=== PATIENT | male | born 1980 | race Caucasian/White ===

== ENCOUNTER 2016-10-28 19:27 | Emergency (ER) | payer OTHER ==
[~2016-10-28] VITALS: Ht 190.5 cm; Wt 122.7 kg
[2016-10-28] MEDS ORDERED: DOLO10TA PO (19:48)
[2016-10-28] MEDS ORDERED: KETOROLAC 60 MG/2 ML VIAL (J1885) IM ONE (20:45)
[2016-10-28 20:57] LABS: BASO % 0.4 % (0.0-1.0); EOS # 0.4 K/mm3 (0.0-0.50); EOS % 3.1 % (0.0-3.0); LARGE UNSTAINED CELL # 0.2 K/mm3 (0.0-0.4); LARGE UNSTAINED CELL % 1.6 % (0.0-4.0); LYMPH % 15.7 % (24.0-44.0); MEAN CORPUSCULAR HEMOGLOBIN 31.1 pg (27.0-33.0); MEAN CORPUSCULAR HGB CONC 34.3 g/dl (32.0-36.5); MEAN CORPUSCULAR VOLUME 90.5 fl (80.0-96.0); MONO # 0.6 K/mm3 (0.0-0.8); MONO % 5.5 % (0.0-5.0); NEUTROPHILS # 8.4 K/mm3 (1.8-7.7); NEUTROPHILS % 73.8 % (36.0-66.0); PLATELET COUNT, AUTOMATED 275 k/mm3 (150-450); RED CELL DISTRIBUTION WIDTH 12.2 % (11.5-14.5); WHITE BLOOD COUNT 11.4 K/mm3 (4.0-10.0)
[2016-10-28 21:17] LABS: ANION GAP 10 MEQ/L (8-16); BLOOD UREA NITROGEN 17 MG/DL (7-18); CALCIUM LEVEL 9.3 MG/DL (8.5-10.1); CARBON DIOXIDE LEVEL 29 MEQ/L (21-32); CHLORIDE LEVEL 100 MEQ/L (98-107); CREATININE FOR GFR 0.92 MG/DL (0.70-1.30); GLOMERULAR FILTRATION RATE > 60.0 (>60); GLUCOSE, FASTING 81 MG/DL (70-105); POTASSIUM SERUM 4.3 MEQ/L (3.5-5.1); SODIUM LEVEL 139 MEQ/L (136-145)
--- NOTE | 2016-10-28 22:00 | REPUSA ---
CLINICAL HISTORY: r/o pathology TECHNIQUE: Realtime sonographic images were obtained in multiple projections. COMMENTS: The right kidney measures 13 cm and the left kidney measures 12.7 cm. Both kidneys are free of hy dronephrosis. There is no evidence of solid or cystic mass. There is no perinephric fluid. There is n o renal calculus. Bladder is underdistended. IMPRESSION: Normal study. Thank you for your kind referral of this patient.
[2016-10-28 22:34] VITALS: BP 133/77
== END 2016-10-28 22:36 | disposition home or self-care (01) ==
LOC: M ED 19:27
DX: R10.9 Unspecified abdominal pain (principal)
CPT/HCPCS: 76775; 80048; 81001; 85025; 96372; 99282; J1885

== ENCOUNTER 2018-05-14 17:46 | Emergency (ER) | payer OTHER ==
[~2018-05-14] VITALS: Ht 190.5 cm; Wt 129.6 kg
[~2018-05-14 17:46] MED LIST: DOLO10TA PO
[2018-05-14] MEDS ORDERED: AMOXICILLIN 500 MG CAP PO ONE (20:45)
[2018-05-14] MEDS ORDERED: LIDOCAINE VISCOUS 2% SOLN 15ML UDC MT ONE (20:45)
[2018-05-14] MEDS ORDERED: KETOROLAC TROMETHAMINE 10 MG TAB PO ONE (20:45)
[2018-05-14] MEDS ORDERED: ACETAMINOPHEN 325 MG TAB PO ONE (20:45)
[2018-05-14] MEDS ORDERED: KETO10TAB PO (20:47)
[2018-05-14] MEDS ORDERED: AMOX875T PO (20:47)
[2018-05-14 21:20] VITALS: BP 148/81
== END 2018-05-14 21:21 | disposition home or self-care (01) ==
LOC: M ED 17:46
DX: K04.7 Periapical abscess without sinus (principal); K27.9 Peptic ulcer, site unspecified, unspecified as acute or chronic, without hemorrhage or perforation; F17.210 Nicotine dependence, cigarettes, uncomplicated

== ENCOUNTER 2018-10-29 20:35 | Inpatient (IN) | payer OTHER ==
[~2018-10-29] VITALS: Ht 190.5 cm; Wt 142.0 kg
[~2018-10-29 20:35] MED LIST changes: +AMOX875T PO; +KETO10TAB PO
[2018-10-29 23:10] VITALS: BP 155/87
[2018-10-29] MEDS ORDERED: PERCOCET 5MG/325MG TAB PO PRN (23:15)
[2018-10-29] MEDS ORDERED: ASPI-161 PO (23:27)
[2018-10-29] MEDS ORDERED: ACET-897 PO (23:27)
[2018-10-29 23:49] LABS: HEMATOCRIT 42.1 % (42.0-52.0); HEMOGLOBIN 13.8 g/dl (13.5-17.5); MEAN CORPUSCULAR HEMOGLOBIN 30.2 pg (27.0-33.0); MEAN CORPUSCULAR HGB CONC 32.8 g/dl (32.0-36.5); MEAN CORPUSCULAR VOLUME 92.1 fl (80.0-96.0); PLATELET COUNT, AUTOMATED 346 10^3/uL (150-450); RED BLOOD COUNT 4.57 10^6/uL (4.30-6.10); WHITE BLOOD COUNT 11.9 10^3/uL (4.0-10.0)
[2018-10-30 00:07] LABS: INR 1.02; PROTHROMBIN TIME 13.1 SECONDS (11.8-14.0)
[2018-10-30 00:09] LABS: BLOOD UREA NITROGEN 16 MG/DL (7-18); CALCIUM LEVEL 9.9 MG/DL (8.5-10.1); CARBON DIOXIDE LEVEL 31 MEQ/L (21-32); CHLORIDE LEVEL 101 MEQ/L (98-107); CREATININE FOR GFR 0.97 MG/DL (0.70-1.30); GLOMERULAR FILTRATION RATE > 60.0 (>60); GLUCOSE, FASTING 163 MG/DL (70-100); POTASSIUM SERUM 4.6 MEQ/L (3.5-5.1); SODIUM LEVEL 138 MEQ/L (136-145)
[2018-10-30] MEDS: PERCOCET 5MG/325MG TAB PO PRN ×2 (01:08→09:13)
[2018-10-30] MEDS: LR 1,000 ML IV SCH ×2 (01:08→09:13)
[2018-10-30 06:00] VITALS: BP 157/95
[2018-10-30 06:41] LABS: HEMATOCRIT 43.8 % (42.0-52.0); HEMOGLOBIN 14.3 g/dl (13.5-17.5); MEAN CORPUSCULAR HEMOGLOBIN 30.7 pg (27.0-33.0); MEAN CORPUSCULAR HGB CONC 32.6 g/dl (32.0-36.5); PLATELET COUNT, AUTOMATED 329 10^3/uL (150-450); RED BLOOD COUNT 4.66 10^6/uL (4.30-6.10); WHITE BLOOD COUNT 9.8 10^3/uL (4.0-10.0)
[2018-10-30 06:52] LABS: INR 1.04; PROTHROMBIN TIME 13.3 SECONDS (11.8-14.0)
[2018-10-30 06:56] LABS: BLOOD UREA NITROGEN 15 MG/DL (7-18); CALCIUM LEVEL 9.5 MG/DL (8.5-10.1); CARBON DIOXIDE LEVEL 31 MEQ/L (21-32); CHLORIDE LEVEL 101 MEQ/L (98-107); GLOMERULAR FILTRATION RATE > 60.0 (>60); GLUCOSE, FASTING 133 MG/DL (70-100); POTASSIUM SERUM 4.4 MEQ/L (3.5-5.1); SODIUM LEVEL 137 MEQ/L (136-145)
--- NOTE | 2018-10-30 10:08 | REP ---
CT RIGHT HIP: CT of the right hip was performed in the axial plane. Sagittal and coronal reconstruction images are performed. Correlation made with plain films from [facility] 10/29/2018. There is no evidence of acute fracture or dislocation. There may be an old chip fracture of the anterior acetabulum. There is moderate joint space narrowing with subchondral sclerosis. There is mild spurring of the lateral acetabulum. There is mild to moderate spurring of the femoral head. Surrounding soft tissue structures grossly unremarkable. IMPRESSION: Moderate degenerative changes without evidence of acute fracture or dislocation. Electronically Signed by Jerome Alcantar MD 10/30/2018 10:18 A
--- NOTE | 2018-10-30 10:44 | HPE ---
DATE OF ADMISSION: 10/30/2018 CHIEF COMPLAINT: Right hip pain. HISTORY OF PRESENT ILLNESS: This is a 38-year-old man. I received a call from [facility] yesterday evening. They were concerned for valgus nondisplaced femoral neck fracture on the right side. According to this man and his father, he slipped on a dock now 17 days ago. He slipped on some green slime and then hit his right hip on the side of the dock. He was able to ambulate afterwards, but he noticed every night when he internally or externally rotated his hip that there would be quite a bit of pain, especially laterally and somewhat in the anterior groin area. He was still able to weightbear but noticed a lot of pain at night. X-rays showed a possible nondisplaced femoral neck suspected fracture. So, I went ahead asked for him to be transferred to our hospital, as [facility] is a critical access hospital. PAST MEDICAL HISTORY: Possible hypertension. MEDICATIONS: None. No known drug allergies. SURGICAL HISTORY: Nil. 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 He smokes 1/2 pack of cigarettes a day. He uses marijuana 1-2 times a week. No alcohol use. No other illicit drug use. VITAL SIGNS: This morning temperature 98.7. Blood pressure of 157/95. Pulse rate 80. 98% on room air. Respiratory rate 18. He is lying supine in bed. On inspection of his right hip, there is no obvious overlying midline or leg length deformity or atrophy. No pain to direct palpation about the hip, the abdomen, or the back. I deferred range of motion testing in case this is a nondisplaced femoral neck fracture. No pain down the femur or knee or ankle. He is able to wiggle his toes, dorsiflex, plantarflex foot. Foot is warm and well-perfused. Strong dorsalis pedis and tibialis posterior pulses. Radiographs were reviewed from [facility], AP and frog-leg lateral of the right hip. There is still what appears to be possible radiolucent line on the medial side of the femoral neck, although this could simply be early osteoarthritis with osteophyte formation. There does appear to be, however, possibly again a disruption in the cortical stress weightbearing lines of the femoral neck. ASSESSMENT AND PLAN: For now, we will keep this man nothing by mouth. We will keep him nonweightbearing. I have ordered blood work. My suspicion is relatively low to moderate given the mechanism of the injury that this would be a valgus-impacted femoral neck fracture in an otherwise healthy individual. However, he is a large individual with a body mass index (BMI) of 39, so this is still a distinct possibility. Before we go ahead with any type of management, it would be lee to confirm or rule out this diagnosis with CT of the right hip. I will go ahead and order this for this morning and review and see him later in the afternoon with the results. HELENA
--- NOTE | 2018-10-30 12:08 | IPN ---
DATE: 10/30/2018 CHIEF COMPLAINT: Right hip pain. HISTORY OF PRESENT ILLNESS: This 38-year-old man slipped and fell on the side of a boat onto his right hip now 17 days ago. I was phone by [facility]. This showed a possible suspicion of a femoral neck fracture. I saw him and assessed him after a direct admission late last evening. I ordered a CT scan to rule in or out a fracture. The CT scan was reviewed by myself as well as radiologist instructional technologist Dr. Alcantar. We both concur that there is no evidence of a femoral neck fracture or other acute abnormality. There is some mild early osteoarthritis, possible old small posterior acetabular fracture. ASSESSMENT/PLAN: This is a 38-year-old man who has no signs of a femoral neck fracture or anything necessitating surgical intervention. He could be weightbearing as tolerated. He can followup in the office if he needs or has continued problems. He already has a followup with myself on 11/05/2018 at 10:15 a.m. I spoke to the patient on the floor as well as the nurses. He will be discharged home today. Follow up as needed.
== END 2018-10-30 12:30 | disposition home or self-care (01) | DRG 351 ==
LOC: M ED INP 22:35 → M MS5PR 22:43
PROVIDERS: ADMIT Orthopaedic Surgery Sports Medicine; ATTEND Orthopaedic Surgery Sports Medicine
DX: M16.11 Unilateral primary osteoarthritis, right hip (principal); F17.210 Nicotine dependence, cigarettes, uncomplicated; M25.551 Pain in right hip; Z91.81 History of falling

== ENCOUNTER 2019-08-06 13:33 | Inpatient (IN) | payer OTHER ==
[~2019-08-06] VITALS: Ht 190.5 cm; Wt 131.4 kg
[~2019-08-06 13:33] MED LIST changes: +ACET-897 PO; +ASPI-161 PO
[2019-08-06] MEDS ORDERED: NS 1,000 ML IV ONE ×3 (13:45→17:45)
[2019-08-06 14:17] LABS: BASO # 0.1 10^3/uL (0.0-0.2); BASO % 0.3 % (0.0-1.0); EOS % 0.1 % (0.0-3.0); HEMATOCRIT 43.9 % (42.0-52.0); HEMOGLOBIN 14.8 g/dl (13.5-17.5); LYMPH # 2.1 10^3/uL (1.5-5.0); LYMPH % 11.9 % (24.0-44.0); MEAN CORPUSCULAR HEMOGLOBIN 30.5 pg (27.0-33.0); MEAN CORPUSCULAR HGB CONC 33.7 g/dl (32.0-36.5); MEAN CORPUSCULAR VOLUME 90.3 fl (80.0-96.0); MONO # 1.4 10^3/uL (0.0-0.8); MONO % 8.2 % (0.0-5.0); NEUTROPHILS # 13.6 10^3/uL (1.5-8.5); NEUTROPHILS % 78.6 % (36.0-66.0); PLATELET COUNT, AUTOMATED 406 10^3/uL (150-450); RED BLOOD COUNT 4.86 10^6/uL (4.30-6.10); WHITE BLOOD COUNT 17.4 10^3/uL (4.0-10.0)
[2019-08-06 14:39] LABS: ACETAMINOPHEN LEVEL < 2.0 UG/ML (10.0-30.0); ALBUMIN 4.7 GM/DL (3.2-5.2); ALT/SGPT 40 U/L (12-78); BILIRUBIN,DIRECT < 0.1 MG/DL (0.0-0.2); BILIRUBIN,TOTAL 0.6 MG/DL (0.2-1.0); CK-MB VALUE MASS 3.8 NG/ML (<3.6); CPK CREATINE PHOSPHOKINASE 479 U/L (39-308); ETHYL ALCOHOL (ETHANOL) < 0.003 % (0.000-0.010); MB/CK RELATIVE INDEX 0.79 (< OR =4); SALICYLATE LEVEL < 1.7 MG/DL (5.0-30.0); THYROID STIMULATING HORMONE 0.191 uIU/ML (0.358-3.740); TOTAL PROTEIN 8.5 GM/DL (6.4-8.2); TROPONIN I < 0.02 NG/ML (< 0.10)
--- NOTE | 2019-08-06 14:54 | REP ---
CHEST SINGLE VIEW: There is no evidence of acute infiltrate. No pleural effusion is seen. The heart is normal in size. The mediastinal silhouette is unremarkable. The visualized osseous structures are intact. IMPRESSION: No acute pulmonary disease. Electronically Signed by Jerome Alcantar MD 08/06/2019 03:09 P
[2019-08-06] MEDS ORDERED: LORazepam 2 MG/ML VIAL (J2060) As Ordered ONE ×2 (15:09→15:45)
[2019-08-06 15:13] LABS: BLOOD UREA NITROGEN 61 MG/DL (7-18); CALCIUM LEVEL 9.6 MG/DL (8.5-10.1); CARBON DIOXIDE LEVEL 21 MEQ/L (21-32); CHLORIDE LEVEL 108 MEQ/L (98-107); GLOMERULAR FILTRATION RATE 51.2 (>60); GLUCOSE, FASTING 182 MG/DL (70-100); POTASSIUM SERUM 4.7 MEQ/L (3.5-5.1); SODIUM LEVEL 141 MEQ/L (136-145)
[2019-08-06] MEDS ORDERED: LORazepam 2 MG/ML VIAL (J2060) IV STA (15:32)
--- NOTE | 2019-08-06 15:37 | REP ---
CT BRAIN WITHOUT IV CONTRAST: CT brain performed without IV contrast. The ventricles are normal in size and position with no midline shift or mass effect. Alcantar/white differentiation is well maintained. There is no acute intracranial hemorrhage or extra-axial fluid collection. Bone window examination is unremarkable. Visualized paranasal sinuses and mastoid air cells are clear. IMPRESSION: Negative noncontrast CT brain. Electronically Signed by Jerome Alcantar MD 08/06/2019 04:15 P
[2019-08-06 17:26] LABS: AMPHETAMINES LEVEL URINE NEGATIVE (NEGATIVE); BARBITURATES URINE NEGATIVE (NEGATIVE); BENZODIAZEPINES URINE NEGATIVE (NEGATIVE); CANNABINOIDS URINE NEGATIVE (NEGATIVE); COCAINE METABOLITE URINE NEGATIVE (NEGATIVE); METHADONE URINE POSITIVE (NEGATIVE); OPIATES URINE NEGATIVE (NEGATIVE); PHENCYCLIDINE URINE NEGATIVE (NEGATIVE)
[2019-08-06] MEDS ORDERED: MAALOX 30 ML SUSP *UDC PO PRN (18:15)
[2019-08-06] MEDS ORDERED: LORazepam 2 MG/ML VIAL (J2060) IV PRN (18:15)
[2019-08-06] MEDS ORDERED: ACETAMINOPHEN TAB 650MG DOSE (2X325MG) PO PRN (18:15)
[2019-08-06] MEDS ORDERED: MOM 30ML SUSPENSION UDC PO PRN (18:15)
--- NOTE | 2019-08-06 18:39 | HPEPDOC ---
[facility] Medical History & Physical Date of Admission August 06, 2019 Date of Service: August 06, 2019 History and Physical CHIEF COMPLAINT: methadone abuse HISTORY OF PRESENT ILLNESS: Patient is a 38-year-old male with past medical history of morbid obesity with a BMI of 36, polysubstance abuse setting with methadone overdose. H&P was primarily obtained by ED team, patient was slightly sedated and uncooperative during interview. Is noted that patient has a history of polysubstance abuse, most recently obtaining methadone on the streets, not currently prescribed. There was possible use of Narcan prior to EMS arrival, none was given en route. In the ED, patient was afebrile, blood pressure 147/87, saturating at 97% on room air. Labs include an elevated white count of 17.4, left shift, neutrophil percentage 78.6, monocyte percentage 8.2, creatinine 1.6, fasting sugar 182, lactic acid 2.8, hepatic function panel within normal limits, ammonia 19, total creatinine kinase 479, troponin 1.02, TSH low at 0.191. Salicylates less than 1.7, acetaminophen level less than 2, alcohol level less than 0.003 methadone dosing positive, imaging includes. Head CT without contrast and chest x-ray revealing no acute disease. In the ED, he was given a liter of normal saline bolus 3, lorazepam 1 mg IV 1. ROS: Unable to be obtained PMH: See above. PSH: See above. Unable to be obtained Family history: Unable to be obtained Social history: +illicits Medications: Reviewed Allergies: NKDA PHYSICAL EXAMINATION: VITAL SIGNS: Please see below. GENERAL: Morbidly obese male, able to respond to simple questions but uncooperative in no distress HEENT: Normocephalic, atraumatic, moist mucous membranes NECK: Supple CARDIOVASCULAR EXAMINATION: S1, S2 RESPIRATORY EXAMINATION: CTAB ABDOMINAL EXAMINATION: Soft, nontender, nondistended, positive bowel sounds EXTREMITIES: no edema SKIN: No rash NEUROLOGICAL EXAMINATION: Awake PSYCHIATRIC EXAMINATION: flat affect Assessment and plan: Patient is a 38-year-old male with past medical history of morbid obesity with a BMI of 36, polysubstance abuse setting with methadone overdose. #Not Rx Methadone use/history of polysubstance abuse: Well not administer opioids, lorazepam 0.5 mg IV every 6 hours when necessary for opioid withdrawal/agitation, IVF #ROBER: Will monitor creatinine levels, follow-up urinalysis, continue IVF #Leukocytosis: Unclear etiology, possible infection versus stress reaction, follow-up urinalysis, follow-up blood cultures, treat accordingly, hold off on antibiotics at this time #Hyperglycemia, will obtain an A1c level #Elevated blood pressure likely secondary to fluids, could have underlying HTN, will monitor, continue IV fluids with gentle hydration rate, elevated blood pressure sustains despite IVF cessation, will consider starting patient on antihypertensive medication #Morbid obesity: Encouraged weight loss as an outpatient DVT ppx: Heparin Full code. Disposition: Well discuss with discharge planning team on disposition Vital Signs Vital Signs Date Time Temp Pulse Resp B/P (MAP) Pulse Ox O2 Delivery O2 Flow Rate FiO2 08/06/19 13:52 97.7 93 25 147/89 (108) 97 Room Air Laboratory Data Labs 24H Laboratory Tests 2 08/06/19 13:52: Bedside Glucose (Misc Panel) 179H 08/06/19 13:56: Immature Granulocyte % (Auto) 0.9, Neutrophils (%) (Auto) 78.6H, Lymphocytes (%) (Auto) 11.9L, Monocytes (%) (Auto) 8.2H, Eosinophils (%) (Auto) 0.1, Basophils (%) (Auto) 0.3, Neutrophils # (Auto) 13.6H, Lymphocytes # (Auto) 2.1, Monocytes # (Auto) 1.4H, Eosinophils # (Auto) 0.0, Basophils # (Auto) 0.1, Nucleated Red Blood Cells % (auto) 0.0, Anion Gap 12, Glomerular Filtration Rate 51.2L, Lactic Acid Level 2.8*H, Calcium Level 9.6, Total Bilirubin 0.6, Direct Bilirubin < 0.1, Aspartate Amino Transf (AST/SGOT) 35, Alanine Aminotransferase (ALT/SGPT) 40, Alkaline Phosphatase 54, Ammonia 19, Total Creatine Kinase 479H, Creatine Kinase MB 3.8H, Creatine Kinase MB Relative Index 0.79, Troponin I < 0.02, Total Protein 8.5H, Albumin 4.7, Albumin/Globulin Ratio 1.2, Thyroid Stimulating Hormone (TSH) 0.191L, Salicylates Level < 1.7L, Acetaminophen Level < 2.0L, Ethyl Alcohol Level < 0.003 08/06/19 13:58: POC Glucose (Misc Panel) 185H, POC Sodium (Misc Panel) 141, POC Potassium (Misc Panel) 4.1, POC Chloride (Misc Panel) 106, POC Total CO2 (Misc Panel) 28.0H, POC Blood Urea Nitrogen (Misc Panel 57H, POC Ionized Calcium (Misc Panel) 4.2L, POC Creatinine (Misc Panel) 1.4H, POC Hematocrit (Misc Panel) 44.0 08/06/19 16:53: Urine Opiates Screen NEGATIVE, Urine Methadone Screen POSITIVEH, Urine Barbiturates Screen NEGATIVE, Urine Phencyclidine Screen NEGATIVE, Urine Amphetamines Screen NEGATIVE, Urine Benzodiazepines Screen NEGATIVE, Urine Cocaine Metabolite Screen NEGATIVE, Urine Cannabinoids Screen NEGATIVE CBC/BMP Laboratory Tests 08/06/19 13:56 Home Medications No Active Prescriptions or Reported Meds Allergies Coded Allergies: No Known Allergies (Unverified , 10/28/16) A-FIB/CHADSVASC A-FIB History Current/History of A-Fib/PAF?: No CASTRO LLOYD MD August 06, 2019 18:21
[2019-08-06] MEDS ORDERED: NALOXONE INJ 0.4MG/1ML VIAL (J2310 PER 1MG) IV PRN (18:45)
[2019-08-06 19:07] LABS: BLOOD UREA NITROGEN 54 MG/DL (7-18); CALCIUM LEVEL 8.5 MG/DL (8.5-10.1); CARBON DIOXIDE LEVEL 26 MEQ/L (21-32); CHLORIDE LEVEL 109 MEQ/L (98-107); CPK CREATINE PHOSPHOKINASE 423 U/L (39-308); CREATININE FOR GFR 1.25 MG/DL (0.70-1.30); GLOMERULAR FILTRATION RATE > 60.0 (>60); GLUCOSE, FASTING 110 MG/DL (70-100); MB/CK RELATIVE INDEX 0.71 (< OR =4); POTASSIUM SERUM 3.9 MEQ/L (3.5-5.1); SODIUM LEVEL 142 MEQ/L (136-145); TROPONIN I < 0.02 NG/ML (< 0.10)
[2019-08-06 19:26] LABS: HEMOGLOBIN A1c 6.8 %
[2019-08-06] MEDS: NS 1,000 ML IV SCH (19:35)
[2019-08-06 19:41] VITALS: BP 136/86
[2019-08-06] MEDS: HEPARIN SOD (PORCINE) 5000UNITS/ML VIAL (J1644 PER 1000UNITS) SC SCH (21:32)
--- NOTE | 2019-08-06 22:20 | ECGEPIP ---
[facility] - ED Test Date: 2019-08-06 Pat Name: KALEY SAMS Department: Room: - Gender: Male Program Manager: vi : 1980 Requested By: CHANCE MARS Order Number: [id number] Reading MD: Zachary Whitlock Measurements Intervals [place] Rate: 93 P: 46 AL: 132 QRS: -15 QRSD: 86 T: 28 QT: 341 QTc: 425 Interpretive Statements SINUS RHYTHM POSSIBLE INCOMPLETE RIGHT BUNDLE BRANCH BLOCK MODERATE VOLTAGE CRITERIA FOR LVH, CONSIDER NORMAL VARIANT MODERATE T-WAVE ABNORMALITY, CONSIDER ANTEROLATERAL ISCHEMIA NO PRIORS FOR COMPARISON Electronically Signed on 08-06-2019 22:20:24 EDT by Zachary Whitlock
[2019-08-07] MEDS: HEPARIN SOD (PORCINE) 5000UNITS/ML VIAL (J1644 PER 1000UNITS) SC SCH ×3 (05:50→20:46)
[2019-08-07 06:00] VITALS: BP 139/81
[2019-08-07 06:44] LABS: HEMATOCRIT 41.9 % (42.0-52.0); HEMOGLOBIN 13.6 g/dl (13.5-17.5); MEAN CORPUSCULAR HEMOGLOBIN 29.8 pg (27.0-33.0); MEAN CORPUSCULAR HGB CONC 32.5 g/dl (32.0-36.5); MEAN CORPUSCULAR VOLUME 91.9 fl (80.0-96.0); PLATELET COUNT, AUTOMATED 352 10^3/uL (150-450); RED BLOOD COUNT 4.56 10^6/uL (4.30-6.10)
[2019-08-07 06:50] LABS: BLOOD UREA NITROGEN 41 MG/DL (7-18); CALCIUM LEVEL 8.7 MG/DL (8.5-10.1); CARBON DIOXIDE LEVEL 26 MEQ/L (21-32); CHLORIDE LEVEL 111 MEQ/L (98-107); CREATININE FOR GFR 1.17 MG/DL (0.70-1.30); GLOMERULAR FILTRATION RATE > 60.0 (>60); GLUCOSE, FASTING 125 MG/DL (70-100); POTASSIUM SERUM 4.1 MEQ/L (3.5-5.1); SODIUM LEVEL 146 MEQ/L (136-145)
[2019-08-07] MEDS: NS 1,000 ML IV SCH (08:19)
[2019-08-07] MEDS ORDERED: INFLUENZA QUADRIVALENT PF VACCINE 0.5ML SYRINGE (90686) IM ONE (09:00)
--- NOTE | 2019-08-07 11:30 | IPNPDOC ---
Date Seen The patient was seen on 08/07/19. Progress Note SUBJECTIVE: sx improved, no o/n events. -Spoke with father and psych. OBJECTIVE PHYSICAL EXAMINATION: VITAL SIGNS: Please see below. GENERAL: Morbidly obese male, able to respond to simple questions more cooperative today, in no distress HEENT: Normocephalic, atraumatic, moist mucous membranes NECK: Supple CARDIOVASCULAR EXAMINATION: S1, S2 RESPIRATORY EXAMINATION: CTAB ABDOMINAL EXAMINATION: Soft, nontender, nondistended, positive bowel sounds EXTREMITIES: no edema SKIN: No rash NEUROLOGICAL EXAMINATION: Awake PSYCHIATRIC EXAMINATION: flat affect Assessment and plan: Patient is a 38-year-old male with past medical history of morbid obesity with a BMI of 36, polysubstance abuse setting with methadone overdose. #Not Rx Methadone use/history of polysubstance abuse: Well not administer opioids, lorazepam 0.5 mg IV every 6 hours when necessary for opioid withdrawa l/agitation, IVF -Spoke with father, Spencer ([phone]), plan to keep overnight, we'll consult psychiatry, possible DC home tomorrow 08/08/19, outpt f/u #ROBER: resolved, will monitor creatinine levels, follow-up urinalysis, continue IVF #Leukocytosis: improved, Unclear etiology, possible infection versus stress reaction, follow-up urinalysis, follow-up blood cultures, treat accordingly, hold off on antibiotics at this time #Hyperglycemia, will obtain an A1c level #Elevated blood pressure likely secondary to fluids, could have underlying HTN, will monitor, continue IV fluids with gentle hydration rate, elevated blood pressure sustains despite IVF cessation, will consider starting patient on antihypertensive medication #Morbid obesity: Encouraged weight loss as an outpatient DVT ppx: Heparin Full code. Disposition: Well discuss with discharge planning team on disposition 40 minutes spent on pt care VS, I&O, 24H, Fishbone Vital Signs/I&O Vital Signs Date Time Temp Pulse Resp B/P (MAP) Pulse Ox O2 Delivery O2 Flow Rate FiO2 08/07/19 06:00 99.3 97 22 139/81 (100) 98 Room Air I&O- Last 24 Hours up to 6 AM 08/07/19 06:00 Intake Total 3301 ml Balance 3301 ml Laboratory Data 24H LABS Laboratory Tests 2 08/06/19 13:52: Bedside Glucose (Misc Panel) 179H 08/06/19 13:56: Immature Granulocyte % (Auto) 0.9, Neutrophils (%) (Auto) 78.6H, Lymphocytes (%) (Auto) 11.9L, Monocytes (%) (Auto) 8.2H, Eosinophils (%) (Auto) 0.1, Basophils (%) (Auto) 0.3, Neutrophils # (Auto) 13.6H, Lymphocytes # (Auto) 2.1, Monocytes # (Auto) 1.4H, Eosinophils # (Auto) 0.0, Basophils # (Auto) 0.1, Nucleated Red Blood Cells % (auto) 0.0, Anion Gap 12, Glomerular Filtration Rate 51.2L, Estimated Mean Plasma Glucose 148H, Hemoglobin A1c 6.8, Lactic Acid Level 2.8*H, Calcium Level 9.6, Total Bilirubin 0.6, Direct Bilirubin < 0.1, Aspartate Amino Transf (AST/SGOT) 35, Alanine Aminotransferase (ALT/SGPT) 40, Alkaline Phosphatase 54, Ammonia 19, Total Creatine Kinase 479H, Creatine Kinase MB 3.8H, Creatine Kinase MB Relative Index 0.79, Troponin I < 0.02, Total Protein 8.5H, Albumin 4.7, Albumin/Globulin Ratio 1.2, Thyroid Stimulating Hormone (TSH) 0.191L, Salicylates Level < 1.7L, Acetaminophen Level < 2.0L, Ethyl Alcohol Level < 0.003 08/06/19 13:58: POC Glucose (Misc Panel) 185H, POC Sodium (Misc Panel) 141, POC Potassium (Misc Panel) 4.1, POC Chloride (Misc Panel) 106, POC Total CO2 (Misc Panel) 28.0H, POC Blood Urea Nitrogen (Misc Panel 57H, POC Ionized Calcium (Misc Panel) 4.2L, POC Creatinine (Misc Panel) 1.4H, POC Hematocrit (Misc Panel) 44.0 08/06/19 16:53: Urine Opiates Screen NEGATIVE, Urine Methadone Screen POSITIVEH, Urine Barbiturates Screen NEGATIVE, Urine Phencyclidine Screen NEGATIVE, Urine Amphetamines Screen NEGATIVE, Urine Benzodiazepines Screen NEGATIVE, Urine Cocaine Metabolite Screen NEGATIVE, Urine Cannabinoids Screen NEGATIVE 08/06/19 18:13: Anion Gap 7L, Glomerular Filtration Rate > 60.0, Calcium Level 8.5, Total Creatine Kinase 423H, Creatine Kinase MB 3.0, Creatine Kinase MB Relative Index 0.71, Troponin I < 0.02 08/06/19 18:38: Lactic Acid Followup at 4 Hours 1.3 08/07/19 05:44: Anion Gap 9, Glomerular Filtration Rate > 60.0, Calcium Level 8.7, Nucleated Red Blood Cells % (auto) 0.0 CBC/BMP Laboratory Tests 08/06/19 13:56 08/06/19 18:13 08/07/19 05:44 Microbiology Microbiology 08/06/19 Blood Culture, Received Pending 08/06/19 Blood Culture, Received Pending CASTRO LLOYD MD August 07, 2019 11:04
[2019-08-07 14:00] VITALS: BP 134/78
[2019-08-07 22:00] VITALS: BP 153/87
[2019-08-08] MEDS: HEPARIN SOD (PORCINE) 5000UNITS/ML VIAL (J1644 PER 1000UNITS) SC SCH ×3 (05:22→22:02)
[2019-08-08 06:00] VITALS: BP 156/88
[2019-08-08 06:07] LABS: HEMATOCRIT 39.7 % (42.0-52.0); HEMOGLOBIN 13.2 g/dl (13.5-17.5); MEAN CORPUSCULAR HEMOGLOBIN 30.1 pg (27.0-33.0); MEAN CORPUSCULAR HGB CONC 33.2 g/dl (32.0-36.5); MEAN CORPUSCULAR VOLUME 90.6 fl (80.0-96.0); PLATELET COUNT, AUTOMATED 326 10^3/uL (150-450); RED BLOOD COUNT 4.38 10^6/uL (4.30-6.10); WHITE BLOOD COUNT 10.4 10^3/uL (4.0-10.0)
[2019-08-08 06:28] LABS: BLOOD UREA NITROGEN 34 MG/DL (7-18); CALCIUM LEVEL 8.7 MG/DL (8.5-10.1); CARBON DIOXIDE LEVEL 24 MEQ/L (21-32); CHLORIDE LEVEL 107 MEQ/L (98-107); CREATININE FOR GFR 1.01 MG/DL (0.70-1.30); GLOMERULAR FILTRATION RATE > 60.0 (>60); GLUCOSE, FASTING 115 MG/DL (70-100); POTASSIUM SERUM 3.9 MEQ/L (3.5-5.1); SODIUM LEVEL 141 MEQ/L (136-145)
--- NOTE | 2019-08-08 10:27 | REP ---
Clinical: Generalized abdominal pain. Technique: Axial noncontrast images from the lung bases to the pubic symphysis with coronal and sagittal re-formations. Comparison: None. Findings: Lung bases are clear. Visualized heart and pericardium normal. Mild fatty infiltration to the liver suggested. Spleen, pancreas, gallbladder, bilateral adrenal glands and kidneys are normal for noncontrast evaluation. The enteric system is without obstruction or acute inflammatory process. Normal terminal ileum and appendix identified in the right lower quadrant. Pelvis demonstrates normal bladder and age appropriate prostate/seminal vesicles. No ascites. No free air. No obvious adenopathy. Abdominal aorta without aneurysm. Musculoskeletal structures are intact without acute abnormality. Impression: 1. Mild fatty infiltration to the liver suggested. 2. No further acute abdominopelvic pathology appreciated. Electronically Signed by Roel Fitch MD 08/08/2019 10:19 A
--- NOTE | 2019-08-08 12:31 | MHCR ---
DATE OF CONSULTATION: 08/07/2019 Consult via telepsychiatry 08/07/2019. HISTORY OF PRESENT ILLNESS: I was asked to evaluate this 38-year-old man with a history of substance abuse who was admitted after methadone overdose. Apparently, the patient is buying the methadone. The patient was felt to be somewhat confused and this is why I was asked to evaluate the patient. The patient was difficult to engage. He definitely appeared to be confused. At first he was saying he did not overdose on methadone. Then he was not sure at all what had happened and why he was in the hospital. Then at some point, he admitted that he does have a problem with abusing methadone. When I asked him how much methadone he has been using, he kept saying "all of it". I asked him multiple times. I could not get him to further explain himself. At one point, he was saying he had a problem with the methadone. Then at another point, he said that he would only use methadone towards the end of the month. The patient would not tell me the date. When I kept asking him to guess on the year, he told me it was 2020. Later on when I asked him again what the year was, he told me again 2020. He admitted that he feels confused. He was able to tell me that the patient denied any mood symptoms. PAST PSYCHIATRIC HISTORY: He said he has never been in a psychiatric hospital before and he has never made a suicidal attempt. He says that his methadone overdose was not a suicidal attempt. FAMILY HISTORY: He says that he mother committed suicide but I am not able to obtain any further information from the patient as to whether mother had any psychiatric problems or not. ABUSE HISTORY: He denies any history of any physical or sexual abuse. SUBSTANCE ABUSE: Apparently, he has a history of abusing heroin. According to the chart his toxicology was positive for methadone. SOCIAL HISTORY: Apparently, the patient lives with his father. He says that he does not work. MENTAL STATUS EXAMINATION: This patient, as I said was difficult to engage. He responded with simple one-word answers. The patient did not exert any formal thought disorder. His eye contact was poor. Psychomotor activity was decreased. He described his mood as okay. His affect was flat. He did not appear to be psychotic. He was not suicidal or homicidal. Concentration was fair. He had difficulty with his memory. He could repeat three words after me but then after a few minutes, he could not remember any of them but remembered two of them only when I gave him some clues. However, he was able to spell world for me forward and backwards. It was difficult to get him to engage on any further mental status questions at that point. Insight and judgment appears to be fair. DIAGNOSES: Substance induced neurocognitive disorder and opioid use disorder. TREATMENT PLAN: At this point, apparently, the patient has already had a CT scan done of his head and it was found to be negative. The patient will be re-evaluated again over the weekend to see if he clears up and the overall plan will be to refer the patient to outpatient addictions treatment.
--- NOTE | 2019-08-08 12:55 | IPNPDOC ---
Date Seen The patient was seen on 08/08/19. Progress Note SUBJECTIVE: Pt c/o abdominal pain. Patient is still slow to respond, reports thirst, Discussed with father, psych, and neuro. OBJECTIVE PHYSICAL EXAMINATION: VITAL SIGNS: Please see below. GENERAL: Morbidly obese male, able to respond to simple questions more cooperative today, in no distress HEENT: Normocephalic, atraumatic, moist mucous membranes NECK: Supple CARDIOVASCULAR EXAMINATION: S1, S2 RESPIRATORY EXAMINATION: CTAB ABDOMINAL EXAMINATION: Soft, nontender, nondistended, positive bowel sounds EXTREMITIES: no edema SKIN: No rash NEUROLOGICAL EXAMINATION: Awake, has trouble with coordination PSYCHIATRIC EXAMINATION: flat affect Assessment and plan: Patient is a 38-year-old male with past medical history of morbid obesity with a BMI of 36, polysubstance abuse setting with methadone overdose. #Not Rx Methadone use/history of polysubstance abuse: Well not administer opioids, lorazepam 0.5 mg IV every 6 hours when necessary for opioid withdrawal/agitation, IVF -Spoke with father, Spencer ([phone]) and psychiatry -PT, OT, -neuro consult, discussed with neuro: MRI of the brain with and without contrast, obtained B1 and B12 level -earilest plan for DC on 08/10/2019, father will vegetable picker. Patient to bring to [facility]: [address] [place] [id number], spoke with Nya Vila, Saturday 8:00a apt (vegetable picker patient at 7 AM) #elevated BP: Will start patient on lisinopril 10 mg daily, patient's A1c is 6.8 #ROBER: resolved, will monitor creatinine levels, follow-up urinalysis, continue IVF #Leukocytosis: improving, Unclear etiology, possible infection versus stress reaction, follow-up urinalysis, follow-up blood cultures, treat accordingly, hold off on antibiotics at this time #Hyperglycemia, A1c 6.8, no additional ISS at this time due to patient's obtunded state #Elevated blood pressure likely secondary to fluids, could have underlying HTN, will monitor, continue IV fluids with gentle hydration rate, elevated blood pressure sustains despite IVF cessation, will consider starting patient on antihypertensive medication #Morbid obesity: Encouraged weight loss as an outpatient DVT ppx: Heparin Full code. Disposition: pending 35 minutes spent on pt care VS, I&O, 24H, Fishbone Vital Signs/I&O Vital Signs Date Time Temp Pulse Resp B/P (MAP) Pulse Ox O2 Delivery O2 Flow Rate FiO2 08/08/19 06:00 98.6 72 18 156/88 (110) 97 Room Air I&O- Last 24 Hours up to 6 AM 08/08/19 06:00 Intake Total 2100 ml Output Total 750 ml Balance 1350 ml Laboratory Data 24H LABS Laboratory Tests 2 08/08/19 05:16: Nucleated Red Blood Cells % (auto) 0.0, Anion Gap 10, Glomerular Filtration Rate > 60.0, Calcium Level 8.7 08/08/19 09:46: CBC/BMP Laboratory Tests 08/08/19 05:16 Microbiology Microbiology 08/06/19 Blood Culture - Preliminary, Resulted No growth after 24 hours . All specim... 08/06/19 Blood Culture - Preliminary, Resulted No growth after 24 hours . All specim... CASTRO LLOYD MD August 08, 2019 11:40
[2019-08-08] MEDS: lisinopriL 10 MG TAB PO SCH (13:22)
[2019-08-08 14:00] VITALS: BP 143/90
[2019-08-08 22:00] VITALS: BP 142/91
[2019-08-09] MEDS: HEPARIN SOD (PORCINE) 5000UNITS/ML VIAL (J1644 PER 1000UNITS) SC SCH ×3 (05:22→21:05)
[2019-08-09 06:00] VITALS: BP 142/90
[2019-08-09 06:06] LABS: HEMATOCRIT 42.8 % (42.0-52.0); HEMOGLOBIN 13.9 g/dl (13.5-17.5); MEAN CORPUSCULAR HGB CONC 32.5 g/dl (32.0-36.5); MEAN CORPUSCULAR VOLUME 89.4 fl (80.0-96.0); PLATELET COUNT, AUTOMATED 346 10^3/uL (150-450); RED BLOOD COUNT 4.79 10^6/uL (4.30-6.10); WHITE BLOOD COUNT 12.5 10^3/uL (4.0-10.0)
[2019-08-09 06:42] LABS: BLOOD UREA NITROGEN 22 MG/DL (7-18); CALCIUM LEVEL 9.1 MG/DL (8.5-10.1); CARBON DIOXIDE LEVEL 26 MEQ/L (21-32); CHLORIDE LEVEL 104 MEQ/L (98-107); CREATININE FOR GFR 0.96 MG/DL (0.70-1.30); GLOMERULAR FILTRATION RATE > 60.0 (>60); GLUCOSE, FASTING 111 MG/DL (70-100); POTASSIUM SERUM 3.9 MEQ/L (3.5-5.1); SODIUM LEVEL 138 MEQ/L (136-145)
[2019-08-09] MEDS ORDERED: MIRALAX *UNIT DOSE* 17GM PACKET PO SCH (09:00)
[2019-08-09] MEDS: lisinopriL 10 MG TAB PO SCH (10:09)
[2019-08-09] MEDS ORDERED: LISI10TA4 PO (11:32)
--- NOTE | 2019-08-09 11:40 | DS.PDOC ---
Discharge Summary General Date of Admission August 08, 2019 at 12:55 Date of Discharge 08/10/19 Discharge Summary PROCEDURES PERFORMED DURING STAY: None ADMITTING DIAGNOSES: 1. Methadone abuse DISCHARGE DIAGNOSES: 1.Methadone abuse COMPLICATIONS/CHIEF COMPLAINT: Mild Methadone Abuse. HISTORY OF PRESENT ILLNESS/HOSPITAL COURSE: Patient is a 38-year-old male with past medical history of morbid obesity with a BMI of 36, polysubstance abuse setting with methadone overdose. To note, pt is not Rx Methadone use and d/t history of polysubstance abuse, no opioids were administered during hospitalization. Pt was hydrated and symptoms improved. Due to sluggish activity, PT evaluated patient and has cleared him to be discharged on 08/10/2019. Psychiatry was also consulted for possible SI. Neurology subsequently was consulted for evaluation of confusion, pending B1 and B12 levels. Also, pending MRI of the brain with and without contrast. I spoke with father, Spencer ([phone]) in regards to dc planning. Due to elevated sys BP 140-160s, patient was empirically started on lisinopril, A1c was 6.8. He had ROBER has position was subsequently resolved, he also had leukocytosis, which improved without additional antibiotic treatment, he denies any fevers. . He does report constipation, records reveal old having bowel movements, we will administer bowel regimen, likely secondary to opioid use. Patient in the a.m. did report some dizziness, and some sweating. He has been without opioids for 4 days, VSS. Plan for DC on 08/10/2019, father will garbage pick up man patient and transport him to [facility]: [address] [place] [address], spoke with Nya Vila, Saturday 8:00a apt (garbage pick up man patient at 7 AM). . Recommend patient to follow-up with PCP 1 week after discharge, encourage weight loss, or morbid obesity. PHYSICAL EXAMINATION: VITAL SIGNS: Please see below. GENERAL: Morbidly obese male, able to respond to simple questions more cooperative today, in no distress HEENT: Normocephalic, atraumatic, moist mucous membranes NECK: Supple CARDIOVASCULAR EXAMINATION: S1, S2 RESPIRATORY EXAMINATION: CTAB ABDOMINAL EXAMINATION: Soft, nontender, nondistended, positive bowel sounds EXTREMITIES: no edema SKIN: No rash NEUROLOGICAL EXAMINATION: Awake, has trouble with coordination PSYCHIATRIC EXAMINATION: flat affect TIME SPENT ON DISCHARGE: 32 minutes Vital Signs/I&Os Vital Signs Date Time Temp Pulse Resp B/P (MAP) Pulse Ox O2 Delivery O2 Flow Rate FiO2 08/09/19 10:09 147/103 08/09/19 06:00 98.0 77 18 99 Room Air I&O- Last 24 Hours up to 6 AM 08/09/19 06:00 Intake Total 3560 ml Output Total 800 ml Balance 2760 ml Laboratory Data Labs 24H Laboratory Tests 2 08/09/19 05:32: Nucleated Red Blood Cells % (auto) 0.0, Anion Gap 8, Glomerular Filtration Rate > 60.0, Calcium Level 9.1 CBC/BMP Laboratory Tests 08/09/19 05:32 Microbiology Microbiology 08/06/19 Blood Culture - Preliminary, Resulted No Growth after 48 hours. All Specime... 08/06/19 Blood Culture - Preliminary, Resulted No Growth after 48 hours. All Specime... Discharge Medications Scheduled Lisinopril (Lisinopril) 10 Mg Tablet, 10 MG PO DAILY Allergies Coded Allergies: No Known Allergies (Unverified , 10/28/16) CASTRO LLOYD MD August 09, 2019 11:33
--- NOTE | 2019-08-09 11:53 | IPNPDOC ---
Date Seen The patient was seen on 08/09/19. Progress Note SUBJECTIVE: Pt c/o abdominal pain CT abd and pelvis wnl, +BM, add med for BM. Pendign MRI brain and B1/B12 levels. D/w PT and Father on dc planning. OBJECTIVE PHYSICAL EXAMINATION: VITAL SIGNS: Please see below. GENERAL: Morbidly obese male, able to respond to simple questions more cooperative today, in no distress HEENT: Normocephalic, atraumatic, moist mucous membranes NECK: Supple CARDIOVASCULAR EXAMINATION: S1, S2 RESPIRATORY EXAMINATION: CTAB ABDOMINAL EXAMINATION: Soft, nontender, nondistended, positive bowel sounds EXTREMITIES: no edema SKIN: No rash NEUROLOGICAL EXAMINATION: Awake, has trouble with coordination PSYCHIATRIC EXAMINATION: flat affect Assessment and plan: Patient is a 38-year-old male with past medical history of morbid obesity with a BMI of 36, polysubstance abuse setting with methadone overdose. #Not Rx Methadone use/history of polysubstance abuse: Well not administer opioids, lorazepam 0.5 mg IV every 6 hours when necessary for opioid withdrawal/agitation, IVF -Spoke with fatherSpencer ([phone]) and psychiatry -PT, OT, -neuro consult, discussed with neuro: MRI of the brain with and without contrast, obtained B1 and B12 level -earilest plan for DC on 08/10/2019, father will olive picker. Patient to bring to [facility]: [address] [place] [address], spoke with Nya Vila, Saturday 8:00a apt (olive picker patient at 7 AM) -add miralax #elevated BP: Will start patient on lisinopril 10 mg daily, patient's A1c is 6.8 #ROBER: resolved, will monitor creatinine levels, follow-up urinalysis, continue IVF #Leukocytosis: improving, Unclear etiology, possible infection versus stress reaction, follow-up urinalysis, follow-up blood cultures, treat accordingly, hold off on antibiotics at this time -no fever, clinical improvement, will monitor #Hyperglycemia, A1c 6.8, no additional ISS at this time due to patient's obtunded state #Elevated blood pressure likely secondary to fluids, could have underlying HTN, will monitor, continue IV fluids with gentle hydration rate, elevated blood pressure sustains despite IVF cessation, will consider starting patient on antihypertensive medication #Morbid obesity: Encouraged weight loss as an outpatient DVT ppx: Heparin Full code. Disposition: pending 32 minutes spent on pt care VS, I&O, 24H, Fishbone Vital Signs/I&O Vital Signs Date Time Temp Pulse Resp B/P (MAP) Pulse Ox O2 Delivery O2 Flow Rate FiO2 08/09/19 10:09 147/103 08/09/19 06:00 98.0 77 18 99 Room Air I&O- Last 24 Hours up to 6 AM 08/09/19 06:00 Intake Total 3560 ml Output Total 800 ml Balance 2760 ml Laboratory Data 24H LABS Laboratory Tests 2 08/09/19 05:32: Nucleated Red Blood Cells % (auto) 0.0, Anion Gap 8, Glomerular Filtration Rate > 60.0, Calcium Level 9.1 CBC/BMP Laboratory Tests 08/09/19 05:32 Microbiology Microbiology 08/06/19 Blood Culture - Preliminary, Resulted No Growth after 48 hours. All Specime... 08/06/19 Blood Culture - Preliminary, Resulted No Growth after 48 hours. All Specime... CASTRO LLOYD MD August 09, 2019 11:52
[2019-08-09 12:03] LABS: CHOLESTEROL LEVEL 152 MG/DL (<200); CHOLESTEROL RISK RATIO 5.846 (<5); HDL CHOLESTEROL 26 MG/DL (>40); LDL CHOLESTEROL 76 MG/DL (<100); NON-HDL-C 126 MG/DL; TRIGLYCERIDES LEVEL 248 MG/DL (<150)
[2019-08-09 14:00] VITALS: BP 131/76
[2019-08-09 22:00] VITALS: BP 137/81
[2019-08-10 05:08] LABS: HEMATOCRIT 45.1 % (42.0-52.0); MEAN CORPUSCULAR HEMOGLOBIN 29.7 pg (27.0-33.0); MEAN CORPUSCULAR HGB CONC 33.3 g/dl (32.0-36.5); MEAN CORPUSCULAR VOLUME 89.3 fl (80.0-96.0); PLATELET COUNT, AUTOMATED 348 10^3/uL (150-450); RED BLOOD COUNT 5.05 10^6/uL (4.30-6.10); WHITE BLOOD COUNT 12.2 10^3/uL (4.0-10.0)
[2019-08-10 05:31] LABS: BLOOD UREA NITROGEN 21 MG/DL (7-18); CALCIUM LEVEL 9.3 MG/DL (8.5-10.1); CARBON DIOXIDE LEVEL 27 MEQ/L (21-32); CHLORIDE LEVEL 102 MEQ/L (98-107); GLOMERULAR FILTRATION RATE > 60.0 (>60); GLUCOSE, FASTING 124 MG/DL (70-100); POTASSIUM SERUM 4.2 MEQ/L (3.5-5.1); SODIUM LEVEL 136 MEQ/L (136-145)
[2019-08-10] MEDS: HEPARIN SOD (PORCINE) 5000UNITS/ML VIAL (J1644 PER 1000UNITS) SC SCH (05:34)
[2019-08-10 06:00] VITALS: BP 140/68
[2019-08-10 07:15] VITALS: BP 140/68
[2019-08-10] MEDS: lisinopriL 10 MG TAB PO SCH (07:15)
== END 2019-08-10 07:19 | disposition home or self-care (01) | DRG 812 ==
LOC: EDBD 13:33 → M ED 13:33 → M ED INP 13:34 → ENRESERV 19:18 → M MSPAV 19:41 → OBSVTOIN 08-08 12:55
PROVIDERS: ADMIT Family Medicine; ATTEND Family Medicine
DX: T40.3X1A Poisoning by methadone, accidental (unintentional), initial encounter (principal); N17.9 Acute kidney failure, unspecified; E66.01 Morbid (severe) obesity due to excess calories; Z68.36 Body mass index [BMI] 36.0-36.9, adult; D72.829 Elevated white blood cell count, unspecified; E73.9 Lactose intolerance, unspecified; Z81.8 Family history of other mental and behavioral disorders; F11.10 Opioid abuse, uncomplicated; K59.09 Other constipation

== ENCOUNTER → 2019-08-11 | Outpatient (CLI) | payer MEDICAID ==
[~2019-08-11] MED LIST changes: +LISI10TA4 PO
== END ==
LOC: M OUTALCOH 09:01
PROVIDERS: ATTEND Psychiatry & Neurology Addiction Medicine
DX: F11.20 Opioid dependence, uncomplicated (principal)

== ENCOUNTER → 2019-09-01 | Outpatient (CLI) | payer OTHER ==
[2019-09-01 10:10] LABS: HEMATOCRIT 46.8 % (42.0-52.0); HEMOGLOBIN 15.2 g/dl (13.5-17.5); MEAN CORPUSCULAR HEMOGLOBIN 29.4 pg (27.0-33.0); MEAN CORPUSCULAR HGB CONC 32.5 g/dl (32.0-36.5); MEAN CORPUSCULAR VOLUME 90.5 fl (80.0-96.0); PLATELET COUNT, AUTOMATED 285 10^3/uL (150-450); RED BLOOD COUNT 5.17 10^6/uL (4.30-6.10); WHITE BLOOD COUNT 7.6 10^3/uL (4.0-10.0)
[2019-09-01 10:38] LABS: ALBUMIN 4.3 GM/DL (3.2-5.2); ALT/SGPT 85 U/L (12-78); BILIRUBIN,TOTAL 0.3 MG/DL (0.2-1.0); BLOOD UREA NITROGEN 22 MG/DL (7-18); CALCIUM LEVEL 9.9 MG/DL (8.5-10.1); CARBON DIOXIDE LEVEL 29 MEQ/L (21-32); CHLORIDE LEVEL 98 MEQ/L (98-107); CREATININE FOR GFR 0.98 MG/DL (0.70-1.30); GLOMERULAR FILTRATION RATE > 60.0 (>60); GLUCOSE, FASTING 211 MG/DL (70-100); POTASSIUM SERUM 4.8 MEQ/L (3.5-5.1); SODIUM LEVEL 134 MEQ/L (136-145); TOTAL PROTEIN 7.9 GM/DL (6.4-8.2)
[2019-09-01 13:43] LABS: CHLAMYDIA DNA AMPLIFICATION NEGATIVE (NEGATIVE); GC DNA AMPLIFICATION NEGATIVE (NEGATIVE)
--- NOTE | 2019-09-01 21:52 | ECGEPIP ---
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
[2019-09-02 09:50] LABS: HEPATITIS B SURFACE ANTIGEN NEGATIVE (NEGATIVE)
[2019-09-02 10:18] LABS: HEPATITIS C VIRUS ABY INDEX 0.2 INDEX (<0.8)
[2019-09-02 10:19] LABS: HIV 1&2 SCREEN CENTAUR NEGATIVE (NEGATIVE)
== END ==
LOC: M LAB 08:55
PROVIDERS: ATTEND Family Medicine
DX: F11.10 Opioid abuse, uncomplicated (principal)

== ENCOUNTER 2020-08-10 13:20 | Emergency (ER) | payer OTHER ==
[~2020-08-10] VITALS: Ht 190.5 cm; Wt 129.6 kg
[~2020-08-10 13:20] MED LIST changes: +LISI10TA22 PO; -LISI10TA4 PO
[2020-08-10 13:22] VITALS: BP 161/92
[2020-08-10 16:57] LABS: BASO # 0.1 10^3/uL (0.0-0.2); BASO % 0.9 % (0.0-1.0); EOS # 0.5 10^3/uL (0.0-0.5); EOS % 5.6 % (0.0-3.0); HEMATOCRIT 42.5 % (42.0-52.0); HEMOGLOBIN 13.6 g/dl (13.5-17.5); LYMPH # 1.6 10^3/uL (1.5-5.0); LYMPH % 19.6 % (24.0-44.0); MEAN CORPUSCULAR HEMOGLOBIN 29.8 pg (27.0-33.0); MONO # 0.7 10^3/uL (0.0-0.8); MONO % 8.6 % (2.0-8.0); NEUTROPHILS # 5.2 10^3/uL (1.5-8.5); NEUTROPHILS % 64.8 % (36.0-66.0); PLATELET COUNT, AUTOMATED 294 10^3/uL (150-450); RED BLOOD COUNT 4.57 10^6/uL (4.30-6.10)
[2020-08-10 17:17] LABS: BLOOD UREA NITROGEN 20 MG/DL (7-18); C REACTIVE PROTEIN QUANTITATIV 0.85 MG/DL (0.00-0.30); CARBON DIOXIDE LEVEL 31 MEQ/L (21-32); CHLORIDE LEVEL 106 MEQ/L (98-107); GLOMERULAR FILTRATION RATE > 60.0 (>60); GLUCOSE, FASTING 88 MG/DL (70-100); SODIUM LEVEL 139 MEQ/L (136-145)
[2020-08-10 17:30] LABS: ERYTHROCYTE SEDIMENTATION RATE 15 mm/hr (0-15)
== END 2020-08-10 17:24 | disposition left against medical advice (07) ==
LOC: M ED 13:20
DX: R22.42 Localized swelling, mass and lump, left lower limb (principal); I10 Essential (primary) hypertension; F17.200 Nicotine dependence, unspecified, uncomplicated

== ENCOUNTER 2020-08-16 17:10 | Emergency (ER) | payer OTHER ==
[~2020-08-16] VITALS: Ht 190.5 cm; Wt 131.8 kg
[2020-08-16 20:26] LABS: BASO # 0.1 10^3/uL (0.0-0.2); BASO % 0.7 % (0.0-1.0); EOS # 0.3 10^3/uL (0.0-0.5); EOS % 3.6 % (0.0-3.0); HEMATOCRIT 40.7 % (42.0-52.0); HEMOGLOBIN 13.1 g/dl (13.5-17.5); LYMPH # 1.9 10^3/uL (1.5-5.0); LYMPH % 21.2 % (24.0-44.0); MEAN CORPUSCULAR HEMOGLOBIN 29.8 pg (27.0-33.0); MEAN CORPUSCULAR HGB CONC 32.2 g/dl (32.0-36.5); MEAN CORPUSCULAR VOLUME 92.5 fl (80.0-96.0); MONO # 0.8 10^3/uL (0.0-0.8); MONO % 8.4 % (2.0-8.0); NEUTROPHILS % 65.8 % (36.0-66.0); PLATELET COUNT, AUTOMATED 308 10^3/uL (150-450); WHITE BLOOD COUNT 9.2 10^3/uL (4.0-10.0)
[2020-08-16 20:46] LABS: ERYTHROCYTE SEDIMENTATION RATE 22 mm/hr (0-15)
[2020-08-16 21:04] LABS: ALBUMIN 4.1 GM/DL (3.2-5.2); ALT/SGPT 49 U/L (12-78); BILIRUBIN,DIRECT < 0.1 MG/DL (0.0-0.2); BILIRUBIN,TOTAL 0.4 MG/DL (0.2-1.0); BLOOD UREA NITROGEN 16 MG/DL (7-18); C REACTIVE PROTEIN QUANTITATIV 0.87 MG/DL (0.00-0.30); CALCIUM LEVEL 9.6 MG/DL (8.5-10.1); CARBON DIOXIDE LEVEL 31 MEQ/L (21-32); CHLORIDE LEVEL 105 MEQ/L (98-107); CREATININE FOR GFR 0.85 MG/DL (0.70-1.30); GLOMERULAR FILTRATION RATE > 60.0 (>60); GLUCOSE, FASTING 90 MG/DL (70-100); POTASSIUM SERUM 3.9 MEQ/L (3.5-5.1); SODIUM LEVEL 139 MEQ/L (136-145); TOTAL PROTEIN 7.7 GM/DL (6.4-8.2)
[2020-08-16 21:15] LABS: AMPHETAMINES LEVEL URINE POSITIVE (NEGATIVE); BARBITURATES URINE NEGATIVE (NEGATIVE); BENZODIAZEPINES URINE NEGATIVE (NEGATIVE); CANNABINOIDS URINE NEGATIVE (NEGATIVE); COCAINE METABOLITE URINE NEGATIVE (NEGATIVE); METHADONE URINE POSITIVE (NEGATIVE); OPIATES URINE NEGATIVE (NEGATIVE); PHENCYCLIDINE URINE NEGATIVE (NEGATIVE)
--- NOTE | 2020-08-16 22:26 | REPVR ---
PROCEDURE INFORMATION: Exam: US Duplex Left Lower Extremity Veins, Limited Exam date and time: 08/16/2020 9:46 PM Age: 39 years old Clinical indication: Pain; Leg, lower and foot; Left; Additional info: Swelling and calf pain, RO dvt TECHNIQUE: Imaging protocol: Real-time Duplex ultrasound of the Left Lower Extremity with 2-D alanis scale, color Doppler flow and spectral waveform analysis with image documentation. Limited exam focused on the left lower extremity veins. COMPARISON: No relevant prior studies available. FINDINGS: Left deep veins: Unremarkable. The common femoral, femoral, proximal profunda femoral and popliteal veins are patent without thrombus. Normal Doppler waveforms. Normal compressibility and/or augmentation response. Left superficial veins: Unremarkable. Saphenofemoral junction is patent without thrombus. Soft tissues: Unremarkable. IMPRESSION: No evidence of deep vein thrombosis. Electronically signed by: Davie Vyas On 08/16/2020 22:26:30 PM
[2020-08-16 22:32] VITALS: BP 142/96
== END 2020-08-16 22:36 | disposition home or self-care (01) ==
LOC: M ED 17:10
DX: R22.42 Localized swelling, mass and lump, left lower limb (principal); R23.8 Other skin changes; I10 Essential (primary) hypertension; F10.10 Alcohol abuse, uncomplicated; F15.10 Other stimulant abuse, uncomplicated

== ENCOUNTER → 2020-08-30 | Outpatient (CLI) | payer OTHER ==
[2020-08-30 13:41] LABS: APPEARANCE, URINE CLEAR (CLEAR); BACTERIA, URINE AUTO NEGATIVE (NEGATIVE); BILIRUBIN, URINE AUTO NEGATIVE (NEGATIVE); BLOOD, URINE BLOOD NEGATIVE (NEGATIVE); COLOR, URINE YELLOW (YELLOW); GLUCOSE, URINE (UA) AUTO NEGATIVE (NEGATIVE); KETONE, URINE AUTO NEGATIVE (NEGATIVE); LEUKOCYTE ESTERASE, URINE AUTO NEGATIVE (NEGATIVE); MUCUS, URINE SMALL (NEGATIVE); NITRITE, URINE AUTO NEGATIVE (NEGATIVE); PROTEIN, URINE AUTO NEGATIVE (NEGATIVE); RBC, URINE AUTO 1 /HPF (0-3); SPECIFIC GRAVITY URINE AUTO 1.015 (1.002-1.035); SQUAMOUS EPITHELIAL CELL UR AU 0 /HPF (0-6); UROBILINOGEN, URINE AUTO 0.2 mg/dL (0.0-2.0); WBC, URINE AUTO 0 /HPF (0-3)
[2020-08-30 13:44] LABS: BASO # 0.1 10^3/uL (0.0-0.2); EOS # 0.5 10^3/uL (0.0-0.5); EOS % 6.9 % (0.0-3.0); HEMOGLOBIN 13.5 g/dl (13.5-17.5); LYMPH % 28.4 % (24.0-44.0); MEAN CORPUSCULAR HEMOGLOBIN 29.9 pg (27.0-33.0); MEAN CORPUSCULAR HGB CONC 32.1 g/dl (32.0-36.5); MEAN CORPUSCULAR VOLUME 93.1 fl (80.0-96.0); MONO # 0.5 10^3/uL (0.0-0.8); MONO % 7.4 % (2.0-8.0); NEUTROPHILS # 3.9 10^3/uL (1.5-8.5); NEUTROPHILS % 55.7 % (36.0-66.0); PLATELET COUNT, AUTOMATED 314 10^3/uL (150-450); RED BLOOD COUNT 4.51 10^6/uL (4.30-6.10)
[2020-08-30 14:16] LABS: BLOOD UREA NITROGEN 17 MG/DL (7-18); CALCIUM LEVEL 9.4 MG/DL (8.5-10.1); CARBON DIOXIDE LEVEL 32 MEQ/L (21-32); CHLORIDE LEVEL 102 MEQ/L (98-107); CREATININE FOR GFR 0.81 MG/DL (0.70-1.30); GLOMERULAR FILTRATION RATE > 60.0 (>60); GLUCOSE, FASTING 134 MG/DL (70-100); POTASSIUM SERUM 4.4 MEQ/L (3.5-5.1); SODIUM LEVEL 139 MEQ/L (136-145)
[2020-08-30 14:39] LABS: HEPATITIS B SURFACE ANTIGEN NEGATIVE (NEGATIVE)
[2020-08-30 15:05] LABS: HEPATITIS C VIRUS ABY INDEX < 0.0 INDEX (<0.8)
[2020-08-30 15:06] LABS: HEPATITIS B CORE ANTIBODY IGM NEGATIVE (NEGATIVE)
[2020-08-30 15:07] LABS: HIV 1&2 SCREEN CENTAUR NEGATIVE (NEGATIVE)
[2020-08-30 15:09] LABS: HEPATITIS A ANTIBODY IGM NEGATIVE (NEGATIVE)
== END ==
LOC: M LAB 11:34
PROVIDERS: ATTEND Family Medicine
DX: L03.90 Cellulitis, unspecified (principal); B89 Unspecified parasitic disease; B58 Toxoplasmosis

== ENCOUNTER → 2020-09-05 | Outpatient (CLI) | payer OTHER ==
[2020-09-05 13:45] LABS: BASO # 0.1 10^3/uL (0.0-0.2); BASO % 0.8 % (0.0-1.0); EOS # 0.4 10^3/uL (0.0-0.5); EOS % 4.4 % (0.0-3.0); HEMATOCRIT 41.7 % (42.0-52.0); HEMOGLOBIN 13.2 g/dl (13.5-17.5); LYMPH # 1.7 10^3/uL (1.5-5.0); LYMPH % 21.7 % (24.0-44.0); MEAN CORPUSCULAR HEMOGLOBIN 29.2 pg (27.0-33.0); MEAN CORPUSCULAR HGB CONC 31.7 g/dl (32.0-36.5); MEAN CORPUSCULAR VOLUME 92.3 fl (80.0-96.0); MONO # 0.8 10^3/uL (0.0-0.8); MONO % 10.3 % (2.0-8.0); NEUTROPHILS % 62.5 % (36.0-66.0); PLATELET COUNT, AUTOMATED 284 10^3/uL (150-450); RED BLOOD COUNT 4.52 10^6/uL (4.30-6.10); WHITE BLOOD COUNT 7.9 10^3/uL (4.0-10.0)
[2020-09-05 14:51] LABS: BLOOD UREA NITROGEN 22 MG/DL (7-18); CARBON DIOXIDE LEVEL 27 MEQ/L (21-32); CHLORIDE LEVEL 105 MEQ/L (98-107); CREATININE FOR GFR 0.81 MG/DL (0.70-1.30); GLOMERULAR FILTRATION RATE > 60.0 (>60); GLUCOSE, FASTING 107 MG/DL (70-100); POTASSIUM SERUM 4.2 MEQ/L (3.5-5.1); SODIUM LEVEL 138 MEQ/L (136-145)
[2020-09-05 14:52] LABS: ALBUMIN 3.8 GM/DL (3.2-5.2); ALT/SGPT 36 U/L (12-78); BILIRUBIN,TOTAL 0.2 MG/DL (0.2-1.0); C REACTIVE PROTEIN QUANTITATIV 0.58 MG/DL (0.00-0.30); CALCIUM LEVEL 8.7 MG/DL (8.5-10.1); IMMUNOGLOBULIN E 75.7 IU/ML (<100); TOTAL PROTEIN 7.1 GM/DL (6.4-8.2)
[2020-09-05 15:01] LABS: ERYTHROCYTE SEDIMENTATION RATE 14 mm/hr (0-15)
--- NOTE | 2020-09-06 06:55 | REPPI ---
INDICATION: R07.9 CHEST PAIN UNSPECIFIED COMPARISON: 08/06/2019 TECHNIQUE: PA and lateral. FINDINGS: The mediastinum and cardiac silhouette are normal. The lung schaeffer are clear and without acute consolidation, effusion, or pneumothorax. The skeletal structures are intact and normal. IMPRESSION: No acute cardiopulmonary process. <Electronically signed by Roel Fitch > 09/06/20 [id number]
== END ==
LOC: M PLAIMG 11:02
PROVIDERS: ATTEND Internal Medicine Infectious Disease
DX: R07.9 Chest pain, unspecified (principal); L02.92 Furuncle, unspecified; Z86.19 Personal history of other infectious and parasitic diseases; R21 Rash and other nonspecific skin eruption; Z87.448 Personal history of other diseases of urinary system

== ENCOUNTER → 2020-09-06 | Outpatient (REF) | payer OTHER ==
[2020-09-06 17:41] LABS: APPEARANCE, URINE CLEAR (CLEAR); BACTERIA, URINE AUTO NEGATIVE (NEGATIVE); BILIRUBIN, URINE AUTO NEGATIVE (NEGATIVE); BLOOD, URINE BLOOD NEGATIVE (NEGATIVE); COLOR, URINE YELLOW (YELLOW); GLUCOSE, URINE (UA) AUTO NEGATIVE (NEGATIVE); KETONE, URINE AUTO NEGATIVE (NEGATIVE); LEUKOCYTE ESTERASE, URINE AUTO NEGATIVE (NEGATIVE); NITRITE, URINE AUTO NEGATIVE (NEGATIVE); PROTEIN, URINE AUTO NEGATIVE (NEGATIVE); RBC, URINE AUTO 0 /HPF (0-3); SPECIFIC GRAVITY URINE AUTO 1.021 (1.002-1.035); SQUAMOUS EPITHELIAL CELL UR AU 0 /HPF (0-6); UROBILINOGEN, URINE AUTO 0.2 mg/dL (0.0-2.0); WBC, URINE AUTO 0 /HPF (0-3)
== END ==
LOC: EEVIPCON 16:48 → M SFHCPLAZ 16:48
PROVIDERS: ATTEND Internal Medicine Infectious Disease
DX: Z86.19 Personal history of other infectious and parasitic diseases (principal); Z87.448 Personal history of other diseases of urinary system

== ENCOUNTER → 2020-09-15 | Outpatient (CLI) | payer OTHER ==
--- NOTE | 2020-09-15 15:02 | REPPI ---
INDICATION: M79.605 LEG PAIN, LEFT. COMPARISON: None. TECHNIQUE: AP and lateral views FINDINGS: There is no acute fracture or destructive osseous lesion. There is an incidental small exostosis arising from the medial proximal cortex of the fibula. IMPRESSION: No acute abnormality. Sign 0 <Electronically signed by Dakota Vital > 09/15/20 [id number]
--- NOTE | 2020-09-15 15:03 | REPPI ---
INDICATION: M79.605 LEG PAIN, LEFT. COMPARISON: None. TECHNIQUE: Four views FINDINGS: No acute fracture or destructive osseous lesion. The mortise is intact. IMPRESSION: Within normal limits. There is a tiny plantar calcaneal heel spur. <Electronically signed by Dakota Vital > 09/15/20 [id number]
== END ==
LOC: M PLAIMG 14:31
PROVIDERS: ATTEND Internal Medicine Infectious Disease
DX: M77.32 Calcaneal spur, left foot (principal); M79.605 Pain in left leg

== ENCOUNTER → 2020-09-21 | Outpatient (REF) | payer OTHER | LOC: M SFHCPLAZ 16:51 | PROVIDERS: ATTEND Internal Medicine Infectious Disease | DX: Z86.19 Personal history of other infectious and parasitic diseases (principal) ==

== ENCOUNTER → 2020-10-10 | Outpatient (CLI) | payer OTHER | LOC: M PLALAB 10:31 | PROVIDERS: ATTEND Internal Medicine Infectious Disease | DX: R21 Rash and other nonspecific skin eruption (principal) ==

== ENCOUNTER 2021-01-02 15:20 | Emergency (ER) | payer OTHER ==
[~2021-01-02] VITALS: Ht 190.5 cm; Wt 132.4 kg
[2021-01-02 15:24] VITALS: BP 131/71
== END 2021-01-02 20:20 | disposition left against medical advice (07) ==
LOC: M ED 15:20
DX: Z53.29 Procedure and treatment not carried out because of patient's decision for other reasons (principal)

== ENCOUNTER → 2021-01-10 | Outpatient (CLI) | payer OTHER ==
--- NOTE | 2021-01-10 14:22 | REP ---
INDICATION: COUGH, UNSPECIFIED COMPARISON: 09/05/2020 TECHNIQUE: PA and lateral. FINDINGS: The mediastinum and cardiac silhouette are normal. The lung schaeffer are clear and without acute consolidation, effusion, or pneumothorax. The skeletal structures are intact and normal. IMPRESSION: No acute cardiopulmonary process. <Electronically signed by Roel Fitch > 01/10/21 [id number]
== END ==
LOC: M PLAIMG 10:21
PROVIDERS: ATTEND Internal Medicine Infectious Disease
DX: R05.9 Cough, unspecified (principal); R19.7 Diarrhea, unspecified

== ENCOUNTER → 2021-04-27 | Outpatient (CLI) | payer OTHER ==
[2021-04-27 15:31] LABS: BASO # 0.1 10^3/uL (0.0-0.2); EOS # 0.7 10^3/uL (0.0-0.5); EOS % 5.8 % (0.0-3.0); HEMATOCRIT 37.9 % (42.0-52.0); HEMOGLOBIN 12.5 g/dl (13.5-17.5); LYMPH # 2.6 10^3/uL (1.5-5.0); LYMPH % 22.8 % (24.0-44.0); MEAN CORPUSCULAR VOLUME 91.1 fl (80.0-96.0); MONO # 0.9 10^3/uL (0.0-0.8); PLATELET COUNT, AUTOMATED 314 10^3/uL (150-450); RED BLOOD COUNT 4.16 10^6/uL (4.30-6.10); WHITE BLOOD COUNT 11.4 10^3/uL (4.0-10.0)
[2021-04-27 15:48] LABS: ERYTHROCYTE SEDIMENTATION RATE 24 mm/hr (0-15)
[2021-04-27 16:25] LABS: ALBUMIN 4.1 GM/DL (3.2-5.2); ALT/SGPT 33 U/L (12-78); BILIRUBIN,TOTAL 0.2 MG/DL (0.2-1.0); BLOOD UREA NITROGEN 28 MG/DL (7-18); C REACTIVE PROTEIN QUANTITATIV 0.96 MG/DL (0.00-0.30); CALCIUM LEVEL 9.3 MG/DL (8.5-10.1); CARBON DIOXIDE LEVEL 28 MEQ/L (21-32); CHLORIDE LEVEL 104 MEQ/L (98-107); CREATININE FOR GFR 1.27 MG/DL (0.70-1.30); GLOMERULAR FILTRATION RATE > 60.0 (>60); GLUCOSE, FASTING 102 MG/DL (70-100); LIPASE 113 U/L (73-393); POTASSIUM SERUM 4.6 MEQ/L (3.5-5.1); SODIUM LEVEL 137 MEQ/L (136-145); TOTAL PROTEIN 7.5 GM/DL (6.4-8.2)
== END ==
LOC: M PLAIMG 14:04
PROVIDERS: ATTEND Internal Medicine Infectious Disease
DX: R10.84 Generalized abdominal pain (principal); R60.0 Localized edema; R04.2 Hemoptysis

== ENCOUNTER → 2021-04-27 | Outpatient (CLI) | payer OTHER ==
[2021-04-27 15:32] LABS: APPEARANCE, URINE CLEAR (CLEAR); BACTERIA, URINE AUTO NEGATIVE (NEGATIVE); BILIRUBIN, URINE AUTO NEGATIVE (NEGATIVE); BLOOD, URINE BLOOD NEGATIVE (NEGATIVE); COLOR, URINE YELLOW (YELLOW); GLUCOSE, URINE (UA) AUTO NEGATIVE (NEGATIVE); KETONE, URINE AUTO NEGATIVE (NEGATIVE); LEUKOCYTE ESTERASE, URINE AUTO NEGATIVE (NEGATIVE); MUCUS, URINE SMALL (NEGATIVE); NITRITE, URINE AUTO NEGATIVE (NEGATIVE); PROTEIN, URINE AUTO NEGATIVE (NEGATIVE); RBC, URINE AUTO 2 /HPF (0-3); SQUAMOUS EPITHELIAL CELL UR AU 0 /HPF (0-6); UROBILINOGEN, URINE AUTO 0.2 mg/dL (0.0-2.0); WBC, URINE AUTO 0 /HPF (0-3)
== END ==
LOC: M PLALAB 14:07
PROVIDERS: ATTEND Family Medicine
DX: B89 Unspecified parasitic disease (principal); N39.0 Urinary tract infection, site not specified

== ENCOUNTER → 2021-05-01 | Outpatient (REF) | payer OTHER | LOC: M SFHCPLAZ 17:17 | PROVIDERS: ATTEND Internal Medicine Infectious Disease | DX: R10.84 Generalized abdominal pain (principal); R60.0 Localized edema ==

== ENCOUNTER → 2021-05-09 | Outpatient (REF) | payer OTHER ==
[2021-05-09 13:36] LABS: APPEARANCE, URINE CLEAR (CLEAR); BACTERIA, URINE AUTO NEGATIVE (NEGATIVE); BILIRUBIN, URINE AUTO NEGATIVE (NEGATIVE); BLOOD, URINE BLOOD NEGATIVE (NEGATIVE); COLOR, URINE COLORLESS (YELLOW); GLUCOSE, URINE (UA) AUTO 3+ mg/dL (NEGATIVE); KETONE, URINE AUTO NEGATIVE (NEGATIVE); LEUKOCYTE ESTERASE, URINE AUTO NEGATIVE (NEGATIVE); NITRITE, URINE AUTO NEGATIVE (NEGATIVE); PROTEIN, URINE AUTO NEGATIVE (NEGATIVE); RBC, URINE AUTO 1 /HPF (0-3); SQUAMOUS EPITHELIAL CELL UR AU 0 /HPF (0-6); UROBILINOGEN, URINE AUTO 0.2 mg/dL (0.0-2.0); WBC, URINE AUTO 0 /HPF (0-3)
== END ==
LOC: M SFHCPLAZ 12:57
PROVIDERS: ATTEND Internal Medicine Infectious Disease
DX: R10.9 Unspecified abdominal pain (principal)

== ENCOUNTER → 2021-05-11 | Outpatient (CLI) | payer OTHER ==
[~2021-05-11] MED LIST changes: +GASTROGRAFIN SOLUTION 30ML (Q9963) As Ordered ONE; +ISOVUE-370 76% 100ML VIAL As Ordered ONE
== END ==
LOC: M RAD 14:21
PROVIDERS: ATTEND Internal Medicine Infectious Disease
DX: R10.84 Generalized abdominal pain (principal)
CPT/HCPCS: 74177; Q9963; Q9967

== ENCOUNTER → 2021-05-15 | Outpatient (CLI) | payer OTHER ==
[~2021-05-15] MED LIST changes: -GASTROGRAFIN SOLUTION 30ML (Q9963) As Ordered ONE; -ISOVUE-370 76% 100ML VIAL As Ordered ONE
== END ==
LOC: M PLAIMG 14:00
PROVIDERS: ATTEND Internal Medicine Infectious Disease
DX: R51.9 Headache, unspecified (principal)

== ENCOUNTER → 2021-06-08 | Outpatient (CLI) | payer OTHER ==
[2021-06-08 12:54] LABS: HEMATOCRIT 43.8 % (42.0-52.0); HEMOGLOBIN 14.5 g/dl (13.5-17.5); MEAN CORPUSCULAR HEMOGLOBIN 30.2 pg (27.0-33.0); MEAN CORPUSCULAR HGB CONC 33.1 g/dl (32.0-36.5); MEAN CORPUSCULAR VOLUME 91.3 fl (80.0-96.0); PLATELET COUNT, AUTOMATED 335 10^3/uL (150-450); WHITE BLOOD COUNT 8.5 10^3/uL (4.0-10.0)
[2021-06-08 13:48] LABS: ALT/SGPT 41 U/L (12-78); BILIRUBIN,TOTAL 0.2 MG/DL (0.2-1.0); BLOOD UREA NITROGEN 24 MG/DL (7-18); CALCIUM LEVEL 9.4 MG/DL (8.5-10.1); CARBON DIOXIDE LEVEL 27 MEQ/L (21-32); CHLORIDE LEVEL 101 MEQ/L (98-107); CREATININE FOR GFR 1.16 MG/DL (0.70-1.30); GLOMERULAR FILTRATION RATE > 60.0 (>60); GLUCOSE, FASTING 269 MG/DL (70-100); POTASSIUM SERUM 4.8 MEQ/L (3.5-5.1); SODIUM LEVEL 135 MEQ/L (136-145); TOTAL PROTEIN 7.2 GM/DL (6.4-8.2)
[2021-06-08 13:54] LABS: HEPATITIS B SURFACE ANTIGEN NEGATIVE (NEGATIVE)
[2021-06-08 14:23] LABS: HEPATITIS C VIRUS ABY INDEX 0.2 INDEX (<0.8); HIV 1&2 SCREEN CENTAUR NEGATIVE (NEGATIVE)
[2021-06-08 14:47] LABS: GC DNA AMPLIFICATION NEGATIVE (NEGATIVE)
== END ==
LOC: M LAB 12:06
PROVIDERS: ATTEND Family Medicine
DX: F11.20 Opioid dependence, uncomplicated (principal)

== ENCOUNTER → 2021-07-04 | Outpatient (CLI) | payer OTHER ==
[2021-07-04 13:57] LABS: BASO # 0.1 10^3/uL (0.0-0.2); BASO % 0.8 % (0.0-1.0); EOS # 0.4 10^3/uL (0.0-0.5); EOS % 4.1 % (0.0-3.0); HEMATOCRIT 40.5 % (42.0-52.0); HEMOGLOBIN 13.2 g/dl (13.5-17.5); LYMPH # 1.4 10^3/uL (1.5-5.0); LYMPH % 15.5 % (24.0-44.0); MEAN CORPUSCULAR HEMOGLOBIN 30.7 pg (27.0-33.0); MEAN CORPUSCULAR HGB CONC 32.6 g/dl (32.0-36.5); MEAN CORPUSCULAR VOLUME 94.2 fl (80.0-96.0); MONO # 0.7 10^3/uL (0.0-0.8); MONO % 8.1 % (2.0-8.0); NEUTROPHILS # 6.5 10^3/uL (1.5-8.5); NEUTROPHILS % 70.8 % (36.0-66.0); PLATELET COUNT, AUTOMATED 338 10^3/uL (150-450); WHITE BLOOD COUNT 9.1 10^3/uL (4.0-10.0)
[2021-07-04 15:07] LABS: ALBUMIN 3.9 GM/DL (3.2-5.2); ALT/SGPT 46 U/L (12-78); BILIRUBIN,TOTAL 0.3 MG/DL (0.2-1.0); BLOOD UREA NITROGEN 17 MG/DL (7-18); CALCIUM LEVEL 9.1 MG/DL (8.5-10.1); CARBON DIOXIDE LEVEL 30 MEQ/L (21-32); CHLORIDE LEVEL 103 MEQ/L (98-107); CHOLESTEROL LEVEL 118 MG/DL (<200); CHOLESTEROL RISK RATIO 3.933 (<5); CREATININE FOR GFR 1.18 MG/DL (0.70-1.30); GLOMERULAR FILTRATION RATE > 60.0 (>60); GLUCOSE, FASTING 125 MG/DL (70-100); HDL CHOLESTEROL 30 MG/DL (>40); LDL CHOLESTEROL 48 MG/DL (<100); NON-HDL-C 88 MG/DL; POTASSIUM SERUM 4.4 MEQ/L (3.5-5.1); SODIUM LEVEL 137 MEQ/L (136-145); TOTAL PROTEIN 7.2 GM/DL (6.4-8.2); TRIGLYCERIDES LEVEL 200 MG/DL (<150); VITAMIN B12 LEVEL 556 PG/ML (247-911)
[2021-07-04 18:37] LABS: HEMOGLOBIN A1c 6.4 %
== END ==
LOC: M PLALAB 09:44
PROVIDERS: ATTEND Physician Assistant
DX: M54.50 Low back pain, unspecified (principal); E11.9 Type 2 diabetes mellitus without complications; R25.2 Cramp and spasm; Z68.38 Body mass index [BMI] 38.0-38.9, adult

== ENCOUNTER 2021-10-15 22:33 | Emergency (ER) | payer OTHER ==
[~2021-10-15] VITALS: Ht 190.5 cm; Wt 126.1 kg
[2021-10-15 22:34] VITALS: BP 181/105
[2021-10-16 00:50] LABS: BASO # 0.1 10^3/uL (0.0-0.2); BASO % 0.7 % (0.0-1.0); EOS # 0.3 10^3/uL (0.0-0.5); EOS % 2.7 % (0.0-3.0); HEMATOCRIT 41.3 % (42.0-52.0); HEMOGLOBIN 13.6 g/dl (13.5-17.5); LYMPH % 19.2 % (24.0-44.0); MEAN CORPUSCULAR HEMOGLOBIN 30.2 pg (27.0-33.0); MEAN CORPUSCULAR HGB CONC 32.9 g/dl (32.0-36.5); MEAN CORPUSCULAR VOLUME 91.8 fl (80.0-96.0); MONO % 9.4 % (2.0-8.0); NEUTROPHILS % 67.7 % (36.0-66.0); PLATELET COUNT, AUTOMATED 382 10^3/uL (150-450); WHITE BLOOD COUNT 10.3 10^3/uL (4.0-10.0)
[2021-10-16 01:12] LABS: ALBUMIN 4.3 GM/DL (3.2-5.2); ALT/SGPT 36 U/L (12-78); BILIRUBIN,DIRECT < 0.1 MG/DL (0.0-0.2); BILIRUBIN,TOTAL 0.2 MG/DL (0.2-1.0); BLOOD UREA NITROGEN 21 MG/DL (7-18); CALCIUM LEVEL 9.4 MG/DL (8.5-10.1); CARBON DIOXIDE LEVEL 27 MEQ/L (21-32); CHLORIDE LEVEL 110 MEQ/L (98-107); CREATININE FOR GFR 1.81 MG/DL (0.70-1.30); GLUCOSE, FASTING 113 MG/DL (70-100); LIPASE 176 U/L (73-393); POTASSIUM SERUM 3.9 MEQ/L (3.5-5.1); SODIUM LEVEL 143 MEQ/L (136-145); TOTAL PROTEIN 7.7 GM/DL (6.4-8.2)
[2021-10-16] MEDS ORDERED: ISOVUE-370 76% 100ML VIAL As Ordered ONE (01:33)
== END 2021-10-16 03:17 | disposition home or self-care (01) ==
LOC: M ED 22:33
DX: N28.9 Disorder of kidney and ureter, unspecified (principal); R11.2 Nausea with vomiting, unspecified; R19.7 Diarrhea, unspecified; E66.9 Obesity, unspecified; I10 Essential (primary) hypertension; F17.200 Nicotine dependence, unspecified, uncomplicated; F19.11 Other psychoactive substance abuse, in remission; F10.11 Alcohol abuse, in remission; Z86.14 Personal history of Methicillin resistant Staphylococcus aureus infection; Z98.890 Other specified postprocedural states
CPT/HCPCS: 71046; 74177; 80048; 80076; 81001; 83690; 85025; 87070; 87205; 87507; 99284; Q9967

== ENCOUNTER → 2021-12-05 | Outpatient (CLI) | payer OTHER | LOC: M LAB 10:24 | PROVIDERS: ATTEND Internal Medicine Gastroenterology | DX: K58.2 Mixed irritable bowel syndrome (principal) ==

== ENCOUNTER → 2021-12-13 | Outpatient (CLI) | payer OTHER ==
[~2021-12-13] MED LIST changes: +E-Z-GAS II EFFERVESCENT PACKET (SODIUM BICARB./CITRIC ACID/SIMETHICONE) As Ordered ONE; +E-Z-HD 98% w/w 340GM SUSP BTL As Ordered ONE; +E-Z-PAQUE 96% w/w SUSP 176GM BTL As Ordered ONE
== END ==
LOC: M RAD 09:52
PROVIDERS: ATTEND Internal Medicine Gastroenterology
DX: K58.2 Mixed irritable bowel syndrome (principal)

== ENCOUNTER → 2021-12-28 | Outpatient (CLI) | payer OTHER ==
[~2021-12-28] MED LIST changes: -E-Z-GAS II EFFERVESCENT PACKET (SODIUM BICARB./CITRIC ACID/SIMETHICONE) As Ordered ONE; -E-Z-HD 98% w/w 340GM SUSP BTL As Ordered ONE; -E-Z-PAQUE 96% w/w SUSP 176GM BTL As Ordered ONE; +METH-1177 PO; +SENN1TAB89 PO
== END ==
LOC: M LABSMTC 10:13
PROVIDERS: ATTEND Anesthesiology
DX: Z01.812 Encounter for preprocedural laboratory examination (principal); Z20.822 Contact with and (suspected) exposure to COVID-19

== ENCOUNTER 2022-01-02 13:44 | Day surgery (SDC) | payer OTHER ==
[~2022-01-02] VITALS: Ht 190.5 cm; Wt 134.6 kg
[~2022-01-02 13:44] MED LIST changes: +LIDOCAINE 2% 100MG/5ML SDV (FOR ANES.) As Ordered ONE; +MIDAZOLAM INJ 2MG/2ML VIAL (J2250 PER 1MG) As Ordered ONE; +ONDANSETRON 4MG 2ML VIAL As Ordered ONE; +ROCURONIUM BROMIDE 50 MG/5 ML VIAL As Ordered ONE; +SUGAMMADEX SODIUM 500 MG/5 ML VIAL (BRIDION) As Ordered ONE; +ceFAZolin SOD 2 GM in IV 1 EA IV ONE; +fentaNYL 100 MCG/2 ML INJECTION As Ordered ONE; +propofoL 200 MG/20 ML VIAL As Ordered ONE
[2022-01-02] MEDS ORDERED: LR 1,000 ML IV SCH (13:55)
[2022-01-02] MEDS ORDERED: SENN1TAB89 (13:57)
[2022-01-02] MEDS ORDERED: METH-1177 PO (13:57)
[2022-01-02] MEDS ORDERED: ACET-907 PO (13:59)
[2022-01-02] MEDS ORDERED: BUPIVACAINE/EPIN 0.25% 30 ML VIAL As Ordered ONE (14:00)
[2022-01-02] MEDS ORDERED: KETAMINE HCL 200 MG/20 ML VIAL As Ordered ONE (14:59)
[2022-01-02 15:35] VITALS: BP 120/60
== END 2022-01-02 16:29 | disposition home or self-care (01) ==
LOC: M SDC 13:44
PROVIDERS: ATTEND Surgery
DX: D17.24 Benign lipomatous neoplasm of skin and subcutaneous tissue of left leg (principal); I10 Essential (primary) hypertension; Z86.19 Personal history of other infectious and parasitic diseases; F19.11 Other psychoactive substance abuse, in remission; E66.9 Obesity, unspecified
CPT/HCPCS: 11406; 12034; 88304; J0690; J2250; J2405; J3010

== ENCOUNTER 2022-01-15 08:02 | Day surgery (SDC) | payer OTHER ==
[~2022-01-15] VITALS: Ht 190.5 cm; Wt 129.7 kg
[~2022-01-15 08:02] MED LIST changes: +ACET-907 PO; -LIDOCAINE 2% 100MG/5ML SDV (FOR ANES.) As Ordered ONE; -MIDAZOLAM INJ 2MG/2ML VIAL (J2250 PER 1MG) As Ordered ONE; +NS 1,000 ML IV ONE; -ONDANSETRON 4MG 2ML VIAL As Ordered ONE; -ROCURONIUM BROMIDE 50 MG/5 ML VIAL As Ordered ONE; +SENN1TAB89; -SUGAMMADEX SODIUM 500 MG/5 ML VIAL (BRIDION) As Ordered ONE; -ceFAZolin SOD 2 GM in IV 1 EA IV ONE; -fentaNYL 100 MCG/2 ML INJECTION As Ordered ONE; -propofoL 200 MG/20 ML VIAL As Ordered ONE; +propofoL 500 MG/50 ML VIAL As Ordered ONE
[2022-01-15] MEDS ORDERED: fentaNYL 100 MCG/2 ML INJECTION As Ordered ONE (08:27)
[2022-01-15] MEDS ORDERED: propofoL 200 MG/20 ML VIAL As Ordered ONE ×2 (08:56→09:17)
[2022-01-15] MEDS ORDERED: LIDOCAINE 2% 100MG/5ML SDV (FOR ANES.) As Ordered ONE (08:56)
[2022-01-15 09:45] VITALS: BP 112/74
== END 2022-01-15 09:55 | disposition home or self-care (01) ==
LOC: M OPP 08:02
PROVIDERS: ATTEND Internal Medicine Gastroenterology
DX: K64.8 Other hemorrhoids (principal); D12.0 Benign neoplasm of cecum; D12.2 Benign neoplasm of ascending colon; D12.4 Benign neoplasm of descending colon; K63.5 Polyp of colon; R19.4 Change in bowel habit; K31.89 Other diseases of stomach and duodenum; R93.3 Abnormal findings on diagnostic imaging of other parts of digestive tract; F17.200 Nicotine dependence, unspecified, uncomplicated; Z86.19 Personal history of other infectious and parasitic diseases; Z80.1 Family history of malignant neoplasm of trachea, bronchus and lung; Z82.0 Family history of epilepsy and other diseases of the nervous system; Z80.43 Family history of malignant neoplasm of testis; Z80.8 Family history of malignant neoplasm of other organs or systems
CPT/HCPCS: 43239; 45380; 45385; 88305; J3010